=== PATIENT | male | born 1950 | race Caucasian/White ===

== ENCOUNTER 2019-02-12 07:31 | Observation (INO) ==
--- NOTE | 2019-02-12 07:47 | Emergency Department Note ---
Disposition Clinical Impression: Allergic reaction Disposition: Admitted As Inpatient Condition: Good Allergic Reaction HPI - General Chief complaint: ED Allergic Reaction Stated complaint: Allergic reation Time Seen by Provider: 02/12/19 07:35 Source: patient Mode of arrival: ambulatory Limitations: no limitations, age Nursing Notes Reviewed: Yes Vital Signs Reviewed: Yes - History of Present Illness HPI Narrative: Patient complains of an allergic reaction with feels on his arms and swelling of his lips. He started on Bactrim on Tuesday but are he had a rash on his hands. He presented to the ER on Tuesday and he continued to take the medications he was given from [facility] where he was admitted with a "blood infection". he says he feels a little short of breath if he gets around and moves otherwise he is not short of breath . He complains of generalized itching. Pt Subjective Complaint: allergic reaction, hives, facial swelling Onset (ago): week(s) (1) Exposure: unknown Symptoms: Reports: rash, itching Severity: moderate Treatment prior to arrival: none Previous Allergic Reaction History: none - Related Data Home Medications Medication Instructions Recorded Confirmed Acetaminophen [Tylenol] 650 mg PO Q6H PRN 01/04/19 02/12/19 Aspirin Enteric Coated [Aspirin EC] 325 mg PO DAILY 01/04/19 02/12/19 Atenolol [Tenormin] 25 mg PO DAILY 01/04/19 02/12/19 Atorvastatin [Lipitor] 10 mg PO DAILY 01/04/19 02/12/19 Calcium Polycarbophil [Fiber 625 mg PO DAILY PRN 01/04/19 02/12/19 Laxative] Cyanocobalamin (B-12) [Vitamin B12] 1,000 mcg PO DAILY 01/04/19 02/12/19 Cyclobenzaprine [Flexeril] 5 mg PO TID PRN 01/04/19 02/12/19 Ergocalciferol (VITAMIN D2) 50,000 unit PO QWEEK 01/04/19 02/12/19 [Vitamin D2] Metformin HCl [Fortamet] 500 mg PO DAILY 01/04/19 02/12/19 Nitroglycerin [Nitrostat] 0.4 mg SL Q5MIN PRN 01/04/19 02/12/19 Ondansetron HCl [Zofran] 4 mg PO Q6H PRN 01/04/19 02/12/19 RX: Docusate [Colace] 100 mg PO BID 01/04/19 02/12/19 RX: Folic Acid 1 mg PO DAILY 01/04/19 02/12/19 dilTIAZem HCl [Diltiazem 24Hr Cd] 120 mg PO DAILY 01/04/19 02/12/19 OxyCODONE/APAP 10/325 [Percocet 1 tab PO Q6HR PRN 01/07/19 02/12/19 10/325 MG] RX: Ketoconazole 2% CRM [Nizoral 1 appl TP DAILY 01/07/19 02/12/19 Cream] Sulfamethoxazole/Trimeth DS 1 tab PO BID 01/07/19 02/12/19 [Bactrim DS] Testosterone [Axiron] 30 mg TD DAILY 01/07/19 02/12/19 Previous Rx's Medication Instructions Recorded Apixaban [Eliquis] 5 mg PO BID #60 tablet 01/07/19 Polyethylene Glycol 3350 [MiraLAX 1 scoop PO DAILY #510 gm 02/10/19 Powder Bulk 17.9 Oz] RX: Cetirizine HCl [Zyrtec] 10 mg PO DAILY #14 capsule 02/10/19 RX: predniSONE [PredniSONE] 40 mg PO DAILY #10 tablet 02/10/19 Allergies Allergy/AdvReac Type Severity Reaction Status Date / Time divalproex sodium Allergy See Verified 01/04/19 12:09 Comments lorazepam Allergy See Verified 01/04/19 12:09 Comments All systems ED: reviewed and negative except as stated. Review of Systems: As Per HPI Constitutional: Denies: fever, chills, weakness, weight change Eyes: Denies: eye pain, eye discharge, vision change ENT ED: Denies: ear pain, throat pain, dental pain, hearing loss, epistaxis, congestion, dysphagia Cardiovascular: Denies: chest pain, palpitations, dyspnea on exertion, edema, syncope Respiratory: Reports: as per HPI Gastrointestinal: Denies: abdominal pain, nausea, vomiting, diarrhea, consti pation, hematemesis, melena, hematochezia Genitourinary: Denies: urgency, dysuria, frequency, hematuria Musculoskeletal: Denies: back pain, neck pain, arthralgia, myalgia Integumentary: Reports: as per HPI, rash Neurological: Denies: headache, weakness, numbness, paresthesias, confusion, abnormal gait, vertigo Psychiatric: Denies: anxiety, depression, suicidal thoughts, homicidal thoughts, auditory hallucinations, visual hallucinations Endocrine: Denies: fatigue Hematological/Lymphatic: Denies: easy bleeding, easy bruising Allergic/Immunologic: Denies: facial swelling, urticaria Past Medical History - Past Medical History Attestation: Yes The following information was validated with the patient. Source: patient, nursing notes reviewed Medical history: Reports: coronary artery disease, diabetes, GERD, hyperlipidemia, hypertension, kidney stones, other Surgical history: Reports: angioplasty/stent, coronary bypass (CABG), orthopedic, other (Low thoracic/lumbar decompression for spinal stenosis) Psychiatric history: Reports: no psych history - Social History Smoking Status: Former smoker Smokeless Tobacco Status: No Alcohol use: Reports: none Drug use: Reports: none Physical Exam - General Limitations: age General appearance: alert, anxious - Head Head exam: atraumatic, normocephalic, normal inspection, other (Facial edema with lymphedema) - Eye Eye exam: Present: normal appearance, PERRL, EOMI - ENT ENT exam: normal exam, normal oropharynx, mucous membranes moist - Neck Neck exam: Present: normal inspection, full ROM, trachea midline - Chest Chest inspection: Present: normal inspection, symmetric chest wall rise - Respiratory Respiratory exam: Present: normal lung sounds bilaterally - Cardiovascular Cardiovascular exam: Present: regular rate, normal rhythm, normal heart sounds - Abdominal Exam Abdominal exam: Present: soft, Non-Tender. Absent: tenderness, distention, guarding, rebound, rigidity - Extremities Exam Extremities exam: Present: normal inspection - Back Exam Back exam: Present: normal inspection, full ROM. Absent: tenderness - Neurological Exam Neurological exam: Present: alert, oriented X3 - Psychiatric Psychiatric exam: Present: normal affect, normal mood - Skin Skin exam: Present: warm, dry, intact, normal color Course Course Narrative: Patient signed out to me by off going physician, Dr. Villeda with supportive patient presented with worsening hives over the course of a week. He was given a dose of IV Decadron and IV Benadryl. On my interview and assessment patient relates that his hives first started a week ago today. He had a routine follow- up appointment at [facility] the following day regarding his prior back surgery and s ubsequent bloodstream infection. He was told that he had highs and should take oral Benadryl which he has been doing all week. He and his state his symptoms got progressively worse and so he came to this ED 2 days ago for the highs. Records show that he was given hydroxyzine and prednisone orally in the ED and prescribed 20 mg of prednisone and 10 mg of cetirizine to take at home in addition to increasing his Benadryl. He came to the ED this morning because his face and eyes were swollen this morning and he was feeling slightly short of breath. He has been on an antibiotic but the highs started before that. He denies any other new medications. He denies any known allergies other than one prior episode of hives that occurred after he drank a milkshake. He never discovered what exactly triggered the hives in the past. states that she did use a new type of laundry soap for all of his clothes and linens when he came home from the hospital and she has continued to use this new soap over the past week. He is status post a low thoracic and lumbar decompression for spinal stenosis in December with a complication of a bloodstream infection with MRSA for which he was transferred to [facility]. He has completed a 6 week course of IV antibiotics through his PICC line including vancomycin. The PICC line was removed at [facility] on Tuesday and he was started on an oral antibiotic twice a day. It appears that this was Bactrim. On my assessment patient has diffuse large raised hives over his entire body. He has some generalized swelling of the face but no swelling of the lips or tongue. He had some scattered wheezing on exam and will be given a DuoNeb along with Pepcid IV. He states he does not feel any better or has noticed any change in his hives since receiving the steroids and Benadryl today. Nursing staff tells me they feel like his hives are less red than when he arrived. He also reported a brief episode of chest pain to nursing staff. He tells me it felt like he had a "air bubble" that kelly up to his chest. This discomfort lasted for 10 minutes and has now resolved. An EKG was obtained by nursing staff immediately after this was reported which shows a normal sinus rhythm at a rate of 81. Patient does have cardiac history with a double bypass in the past 8 years ago. He also had a episode of new onset A. fib during his prior hospitalization and was started on anti-arrhythmics. He is also borderline diabetic. Will obtain chest x-ray as well as some lab work. Given the severity of patient's reaction without improvement with a single dose of IV antibiotics and anticipate likely admission for continued monitoring and steroid and antihistamine dosing. - Reevaluation(s) Reevaluation #1: Patient reports improvement in his breathing after the neb treatment. He is not currently short of breath. He still has significant itching but feels like the hives have faded somewhat. We will give hydralazine to help with the itching he sees Jeffry had a large dose of IV Benadryl. Chest x-ray and lab work are unremarkable other than a mild anemia. Discussed with patient recommendation for admission for continued monitoring and treatment he is in agreement. Spoke to hospice online activist, Dr. Saleh who has agreed to accept the patient. Time: 09:53 Vital Signs Temperature 98.2 F 02/12/19 07:33 Pulse Rate 87 02/12/19 07:33 Respiratory Rate 20 02/12/19 07:33 Blood Pressure 148/77 02/12/19 07:33 O2 Sat by Pulse Oximetry 94 02/12/19 07:33 Temperature 98.3 F 02/14/19 00:26 Pulse Rate 70 02/14/19 00:26 Respiratory Rate 17 02/14/19 00:26 Blood Pressure 112/69 02/14/19 00:26 O2 Sat by Pulse Oximetry 95 02/14/19 00:26 Oxygen Delivery Oxygen Delivery Nasal Cannula Allergic Reaction - [facility] Narrative Medical decision making narrative: I reviewed the patient's medication list - Differential Diagnosis Differential Diagnosis: Likely: allergic reaction, angioedema, urticaria - Medical Records Medical records reviewed: Yes I reviewed the patient's medical records. - Lab Data Lab results reviewed: Yes I reviewed the patient's lab results. Result diagrams: 02/14/19 04:47 02/14/19 04:47 Lab Results 02/12/19 02/12/19 Range/Units 09:04 09:04 WBC 7.4 (4.3-11.1) K/mcL RBC 4.02 L (4.19-5.50) M/mcL Hgb 10.5 L (12.9-16.9) g/dL Hct 33.5 L (37.5-50.1) % MCV 83.3 (83.0-100.0) fL MCH 26.1 L (28.0-33.3) pg MCHC 31.3 L (31.6-35.5) g/dL RDW 16.1 H (11.5-14.5) % Plt Count 349 (140-400) K/mcL MPV 10.9 (9.4-12.4) fL Immature Gran % 0.5 (0-4) % Seg Neutrophils % 66.9 % Lymphocytes % 22.7 % Monocytes % 3.2 % Eosinophils % 6.6 % Basophils % 0.1 % Neutrophils # 4.9 (1.6-8.9) K/mcL Lymphocytes # 1.7 (0.6-4.6) K/mcL Monocytes # 0.2 (0.0-1.3) K/mcL Eosinophils # 0.5 (0.0-0.6) K/mcL Basophils # 0.0 (0.0-0.2) K/mcL Nucleated RBCs/100 WBC 0.3 H (0) /100 WBC Platelet Estimate Normal (Normal) Sodium 135 L (136-145) mEq/L Potassium 4.1 (3.5-5.1) mEq/L Chloride 100 (98-107) mEq/L Carbon Dioxide 25 (23-29) mEq/L BUN 24 H (8-23) mg/dL Creatinine 1.09 (0.70-1.30) mg/dL Est GFR ( Amer) > 60 (> 60) Est GFR (Non-Af Amer) > 60 (> 60) BUN/Creatinine Ratio 22 (6-26) Glucose 122 H (70-105) mg/dL Calculated Osmolality 285 (280-300) Calcium 9.3 (8.6-10.3) mg/dL Troponin I < 0.03 (< 0.04) ng/mL - Radiology Data Radiology results reviewed: Yes I reviewed the patient's radiology results. ITS Impressions Chest X-Ray 02/12/19 08:42 IMPRESSION: No acute cardiopulmonary process radiographically. D/ / Tom Lopez MD / Tom Lopez MD Interpreting Provider: Tom Lopez MD - EKG Data EKG attestation: Yes I reviewed and interpreted this EKG. EKG shows normal: sinus rhythm Rate: normal Rhythm: NSR [place]/QRS: normal Interpretation: no acute changes, normal EKG S.B.Carmencita - Amelia Background: Presenting Complaint Assessment: Vital Signs Recommendation: Barrier(s) to disposition S.B.A.Bertha Report Given to: Dr. Danielle Cisneros Repor Time: 08:00
[2019-02-12] MEDS ORDERED: Dexamethasone 4 MG/ML VIAL IVP ONE (07:48)
[2019-02-12] MEDS ORDERED: Famotidine 20 MG/2 ML VIAL IVP ONE (08:41)
[2019-02-12] MEDS ORDERED: Ipratropium/Albuterol Neb 3 ML IH ONE (08:42)
[2019-02-12 09:21] LABS: Basophils % 0.1 %; Eosinophils # 0.5 K/mcL (0.0-0.6); Eosinophils % 6.6 %; Hematocrit 33.5 % (37.5-50.1); Hemoglobin 10.5 g/dL (12.9-16.9); Immature Granulocytes % 0.5 % (0-4); Lymphocytes # 1.7 K/mcL (0.6-4.6); Lymphocytes % 22.7 %; Mean Corpuscular HGB Conc 31.3 g/dL (31.6-35.5); Mean Corpuscular Hemoglobin 26.1 pg (28.0-33.3); Mean Corpuscular Volume 83.3 fL (83.0-100.0); Mean Platelet Volume 10.9 fL (9.4-12.4); Monocytes # 0.2 K/mcL (0.0-1.3); Monocytes % 3.2 %; Neutrophils # 4.9 K/mcL (1.6-8.9); Nucleated Red Blood Cells 0.3 /100 WBC (0); Platelet Count 349 K/mcL (140-400); Red Blood Count 4.02 M/mcL (4.19-5.50); Red Cell Distribution Width 16.1 % (11.5-14.5); Segmented Neutrophils % 66.9 %
[2019-02-12 09:31] LABS: BUN/Creatinine Ratio 22 (6-26); Blood Urea Nitrogen 24 mg/dL (8-23); Calcium 9.3 mg/dL (8.6-10.3); Carbon Dioxide 25 mEq/L (23-29); Chloride 100 mEq/L (98-107); Glucose 122 mg/dL (70-105); Osmolality,Calculated 285 (280-300); Potassium 4.1 mEq/L (3.5-5.1); Sodium 135 mEq/L (136-145); eGFR For Non-African Americans > 60 (> 60)
[2019-02-12 09:40] LABS: Troponin I < 0.03 ng/mL (< 0.04)
[2019-02-12] MEDS ORDERED: HydrOXYzine 100 MG/2 ML VIAL IM ONE (09:47)
[2019-02-12 09:50] LABS: Platelet Estimate Normal (Normal)
[2019-02-12] MEDS ORDERED: Naloxone 0.4 MG/ML INJ IVP PRN ×2 (09:54→10:25)
[2019-02-12] MEDS ORDERED: D5% in Water 1,000 ML IVC PRN ×2 (09:57→10:25)
[2019-02-12] MEDS ORDERED: *HR* Dextrose 50 % in Water (Vial) 50 ML VIAL IVP PRN (09:57)
[2019-02-12] MEDS ORDERED: Dextrose Gel 15 GM/37.5 ML TUBE PO PRN ×4 (09:57→10:25)
[2019-02-12] MEDS ORDERED: *HR* Dextrose 50 % in Water (Syg) 50 ML SYRINGE IVP PRN (10:25)
[2019-02-12] MEDS ORDERED: Ondansetron ODT 4 MG TAB.RAPDIS PO PRN (10:25)
[2019-02-12] MEDS ORDERED: Acetaminophen 325 MG TABLET PO PRN (10:25)
[2019-02-12] MEDS ORDERED: Nitroglycerin 0.4 MG TAB.SUBL SL PRN (10:25)
--- NOTE | 2019-02-12 10:48 | Electrocardiograph Report ---
[place] [id number] Test Date: 2019-02-12 Pat Name: Manuel Stewart Department: EDP-14 Room: [facility] Gender: M End Frazer: : 1950 Requested By: Maribel Ospina Order Number: [id number] Reading MD: Lawson Yuan Measurements Intervals [place] Rate: 81 P: 69 TX: 136 QRS: 68 QRSD: 98 T: -44 QT: 370 QTc: 430 Interpretive Statements Sinus rhythm Nonspecific ST-T changes Electronically Signed On 02-12-2019 10:46:38 EDT by Lawson Yuan
[2019-02-12] MEDS ORDERED: Insulin LISPRO 300 UNITS/3 ML VIAL SQ SCH ×2 (12:00→21:00)
[2019-02-12] MEDS: Insulin LISPRO 300 UNITS/3 ML VIAL SQ SCH ×3 (12:20→19:30)
[2019-02-12] MEDS: *HR* OxyCODONE/APAP 10/325 TABLET PO PRN ×2 (14:05→20:40)
[2019-02-12] MEDS: Cholecalciferol (D-3) 1,000 UNIT TABLET PO SCH (14:05)
--- NOTE | 2019-02-12 16:51 | Internal Med History&Physical ---
Date of Encounter: 02/12/19 Time of Encounter: 16:15 Assessment and Plan (1) Urticaria Current visit: No Status: Acute Suspect drug allergy. He will be given IV steroids and oral antihistamines. (2) Anemia Current visit: Yes Status: Acute Check anemia testing in a.m. Qualifiers: Anemia type: unspecified type Qualified Code(s): D64.9 - Anemia, unspecified (3) DM type 2 (diabetes mellitus, type 2) Current visit: Yes Status: Chronic He reports "borderline" DM 2 but has been prescribed metformin. Hemoglobin A1c was 6.5% on 10/13/2018. Recheck hemoglobin A1c in a.m. 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 Qualifiers: Hypertension type: essential hypertension Qualified Code(s): I10 - Essential (primary) hypertension Internal Medicine - H&P: HPI Chief complaint: Hives Admitted From: Emergency Dept Plans for Post Hospital Care: Home History of present illness: Mr. Stewart is a 68 year old male who came to emergency room the morning of admission stating treatment for hives prescribed at an ER visit February 10 had not lessened the hives. He reports he had itching on his skin the previous day but no visible hives. He was started on prednisone and Zyrtec at the 02/10/2019 ER visit without improvement. He was evaluated in emergency room today and given IV steroids and admitted to [facility] floor for ongoing care needs. He reports an L3-4 fusion procedure was done at [facility] 12/19/2018 without obvious immediate complications. (An original spine surgery had been done 2013.) Following discharge home he developed infection and was readmitted to [facility]. He was started on IV vancomycin and discharged to an LTAC for a few days prior to returning home and continuing the vancomycin course at home using a PICC line. On February 05 he noticed some pruritus of his hands without visible hives. On February 06 his infectious disease physician discontinued the IV vancomycin/PICC line and placed him on oral Septra for ongoing antibiotic therapy. He was told to take OTC Benadryl for the reported itching. He had persistent itching and developed visible hives the following day persisted so he came to emergency room February 10. He denies previous sulfa allergies. Musko skeletal history is otherwise negative for gout or other bone joint or muscle disorders. Past Med Surg Social Fam HX - Past Medical History Medical history: coronary artery disease, diabetes, GERD, hyperlipidemia, hypertension, kidney stones, other Additional medical history: low testerone Psychiatric history: no psych history - Past Surgical History Surgical History: angioplasty/stent, coronary bypass (CABG), orthopedic, other Additional surgical history: shoulder sx, back sx - Social History Smoking Status: Former smoker Smokeless Tobacco Status: No Alcohol use: none Drug use: none - Family History Father Living Status: Internal Medicine - H&P: Meds Acetaminophen [Tylenol] 650 mg PO Q6H PRN 01/04/19 [History] Aspirin Enteric Coated [Aspirin EC] 325 mg PO DAILY 01/04/19 [History] Atenolol [Tenormin] 25 mg PO DAILY 01/04/19 [History] Atorvastatin [Lipitor] 10 mg PO DAILY 01/04/19 [History] Calcium Polycarbophil [Fiber Laxative] 625 mg PO DAILY PRN 01/04/19 [History] Cyanocobalamin (B-12) [Vitamin B12] 1,000 mcg PO DAILY 01/04/19 [History] Cyclobenzaprine [Flexeril] 5 mg PO TID PRN 01/04/19 [History] Docusate [Colace] 100 mg PO BID 01/04/19 [History] Ergocalciferol (VITAMIN D2) [Vitamin D2] 50,000 unit PO QWEEK 01/04/19 [History] Folic Acid 1 mg PO DAILY 01/04/19 [History] Metformin HCl [Fortamet] 500 mg PO DAILY 01/04/19 [History] Nitroglycerin [Nitrostat] 0.4 mg SL Q5MIN PRN 01/04/19 [History] Ondansetron HCl [Zofran] 4 mg PO Q6H PRN 01/04/19 [History] dilTIAZem HCl [Diltiazem 24Hr Cd] 120 mg PO DAILY 01/04/19 [History] Apixaban [Eliquis] 5 mg PO BID #60 tablet 01/07/19 [Rx] Ketoconazole 2% CRM [Nizoral Cream] 1 appl TP DAILY 01/07/19 [History] OxyCODONE/APAP 10/325 [Percocet 10/325 MG] 1 tab PO Q6HR PRN 01/07/19 [History] Sulfamethoxazole/Trimeth DS [Bactrim DS] 1 tab PO BID 01/07/19 [History] Testosterone [Axiron] 30 mg TD DAILY 01/07/19 [History] Cetirizine HCl [Zyrtec] 10 mg PO DAILY #14 capsule 02/10/19 [Rx] Polyethylene Glycol 3350 [MiraLAX Powder Bulk 17.9 Oz] 1 scoop PO DAILY #510 gm 02/10/19 [Rx] predniSONE [PredniSONE] 40 mg PO DAILY #10 tablet 02/10/19 [Rx] Allergy/AdvReac Type Severity Reaction Status Date / Time divalproex sodium Allergy See Verified 01/04/19 12:09 Comments lorazepam Allergy See Verified 01/04/19 12:09 Comments All Systems PM: A 10-system review of systems was performed and is negative for pertinent findings except as documented above in the HPI. Review of systems: Gen.: He states his weight has decreased approximately 10 pounds during recent illness/surgery Cardiovascular: He has history of hypertension and known ASHD status post 2 vessel CABG in 2010. Reports a ARACELI was done in [place] prior to the L34 fusion. He had atrial fibrillation postoperatively but converted back to NSR. He remains on Eliquis. He denies heart failure DVT or pulmonary embolus. Respiratory: He smoked from age [age] up to 2 packs per day. He denies knowledge of COPD. He has GISELE and uses CPAP at bedtime. GI: He denies disorders of his liver gallbladder or exocrine pancreas : He has BPH symptoms. He has had kidney stones remotely. He denies other kidney or bladder disorders Neurologic: He denies large distribution strokes or seizures. Endocrine: He has hyperlipidemia and "borderline" diabetes. He denies known thyroid disease Hematology/oncology: He was unaware he had anemia on all labs since 01/03/2019. He denies internal malignancies other blood disorders Psychiatric: He denies anxiety depression or other mental health issues. Musko skeletal: As per history of present illness - Constitutional Vitals: Temp Pulse Resp BP Pulse Ox 98.1 F 81 13 122/72 93 02/12/19 14:18 02/12/19 14:18 02/12/19 14:18 02/12/19 14:18 02/12/19 14:18 Exam: Gen.: He is a well-developed well-nourished male lying comfortably in bed who appears in minimal distress at present time HEENT: He has angioedema of his upper lip. He has significant periorbital edema bilaterally. Eyes: EOMI. There is no scleral icterus. Mouth: Mucosa is moist. Neck: Supple and nontender. There is no thyromegaly or adenopathy noted. Heart: Regular without murmurs gallops or ectopics Lungs: No wheezes or crackles are heard. Abdomen: Soft and nontender. No masses or guarding are noted. Extremities: There is no cyanosis edema or clubbing noted. Dorsalis pedis and posttibial pulses are 1-2 over 2 bilaterally. Neurologic: Mental status: He is talkative and a good historian. Cranial nerves: Smile is symmetric. Forehead wrinkles bilaterally. Tongue protrudes midline. EOMI. Motor: There is no pronator drift. Cerebellar: Finger to nose is intact bilaterally. Skin: Warm and dry. He has hives on a significant portion of his torso, back, legs, and arms. Internal Med - H&P Results - Labs CBC & Chem 7: 02/12/19 09:04 02/12/19 09:04 Labs: Short CBC 02/12/19 Range/Units 09:04 WBC 7.4 (4.3-11.1) K/mcL Hgb 10.5 L (12.9-16.9) g/dL Hct 33.5 L (37.5-50.1) % Plt Count 349 (140-400) K/mcL Neutrophils # 4.9 (1.6-8.9) K/mcL BMP 02/12/19 09:04 Sodium 135 L Potassium 4.1 Chloride 100 Carbon Dioxide 25 BUN 24 H Creatinine 1.09 Glucose 122 H Calcium 9.3 Cardiac Enzymes 02/12/19 02/12/19 Range/Units 09:04 11:23 Troponin I < 0.03 < 0.03 (< 0.04) ng/mL - Impressions ITS Impressions Chest X-Ray 02/12/19 08:42 IMPRESSION: No acute cardiopulmonary process radiographically. D/ / Tom Lopez MD / Tom Lopez MD Interpreting Provider: Tom Lopez MD - VTE Reasons for not Prescribing Prophylaxis: Treatment not Indicated - Low risk for VTE
[2019-02-12] MEDS ORDERED: Famotidine 20 MG TABLET PO SCH (16:57)
[2019-02-12] MEDS: Dexamethasone 4 MG/ML VIAL IVP SCH (17:51)
[2019-02-12] MEDS: Apixaban 5 MG TABLET PO SCH (19:39)
[2019-02-12] MEDS ORDERED: Sulfamethoxazole/Trimeth DS 1 EACH TABLET PO SCH (21:00)
[2019-02-13] MEDS: Dexamethasone 4 MG/ML VIAL IVP SCH ×3 (00:59→16:43)
[2019-02-13] MEDS: Insulin LISPRO 300 UNITS/3 ML VIAL SQ SCH ×6 (01:00→20:27)
[2019-02-13] MEDS: *HR* OxyCODONE/APAP 10/325 TABLET PO PRN ×3 (03:44→15:37)
[2019-02-13] MEDS: Cholecalciferol (D-3) 1,000 UNIT TABLET PO SCH (08:21)
[2019-02-13] MEDS: Famotidine 20 MG TABLET PO SCH ×2 (08:21→20:27)
[2019-02-13] MEDS: Cyanocobalamin (B-12) 1,000 MCG TABLET PO SCH (08:21)
[2019-02-13] MEDS: Diltiazem CD (24hr) 120 MG CAPSULE PO SCH (08:21)
[2019-02-13] MEDS: Apixaban 5 MG TABLET PO SCH ×2 (08:21→20:27)
[2019-02-13] MEDS: Folic Acid 1 MG TABLET PO SCH (08:21)
[2019-02-13] MEDS: Loratadine 10 MG TABLET PO SCH (08:21)
[2019-02-13] MEDS: *HR* Metformin 500 MG TABLET PO SCH (08:22)
[2019-02-13] MEDS ORDERED: Aspirin Enteric Coated 325 MG Tablet PO SCH (09:00)
[2019-02-13 09:08] LABS: % Iron Saturation 15 % (20-55); Iron 42 mcg/dL (65-175); Transferrin 204 mg/dL (203-362)
[2019-02-13 09:16] LABS: Ferritin 223 ng/mL (20-250)
[2019-02-13 09:21] LABS: Folate 8.6 ng/mL (3.0-16.0)
[2019-02-13 09:24] LABS: Estimated Average Glucose 123 mg/dl; Hemoglobin A1C 5.9 %
--- NOTE | 2019-02-13 09:46 | Internal Med Progress Note ---
Date of Encounter: 02/13/19 Time of Encounter: 09:38 - Assessment and plan (1) Urticaria Current Visit: No Status: Acute Assessment and plan: February 13. Continue IV steroids and oral antihistamines. (2) Anemia Current Visit: Yes Status: Acute Assessment and plan: February 13. Anemia testing showed iron 42, transferrin saturation 15%, transferrin 204, ferritin 223, B12 559, and folate 8.6. Start ferrous sulfate with ascorbic acid trial in a.m. Qualifiers: Anemia type: unspecified type Qualified Code(s): D64.9 - Anemia, unspecified (3) DM type 2 (diabetes mellitus, type 2) Current Visit: Yes Status: Chronic Assessment and plan: February 13. Hemoglobin A1c acceptable at 5.9%. Qualifiers: Diabetes mellitus fci insulin use: without fci use Diabetes mellitus complication status: without complication Qualified Code(s): E11.9 - Type 2 diabetes mellitus without complications (4) HTN (hypertension) Current Visit: No Status: Chronic Assessment and plan: February 13. Continue Tenormin. Qualifiers: Hypertension type: essential hypertension Qualified Code(s): I10 - Essential (primary) hypertension - Subjective Interval history: February 13. He has no new complaints. He has slight pruritus. - Constitutional Vitals: Temp Pulse Resp BP Pulse Ox 98.3 F 73 13 129/72 95 02/13/19 07:08 02/13/19 07:08 02/13/19 07:08 02/13/19 07:08 02/13/19 07:08 Exam: He is resting comfortably in bed and appears in no acute distress. He has slight decrease in amount of hives, lip angioedema, and periorbital edema. I reviewed his medications and lab results. Internal Medicine: Result - Labs CBC & Chem 7: 02/12/19 09:04 02/12/19 09:04 Labs: Short CBC 02/12/19 Range/Units 09:04 Neutrophils # 4.9 (1.6-8.9) K/mcL Cardiac Enzymes 02/12/19 02/12/19 02/12/19 Range/Units 11:23 17:05 23:02 Troponin I < 0.03 < 0.03 < 0.03 (< 0.04) ng/mL - VTE Reasons for not Prescribing Prophylaxis: Treatment not Indicated - Low risk for VTE Consult Discharge Plan - Plan Referrals: NONE,PCP [Primary Care Provider] - 1 week
[2019-02-13] MEDS: Ketoconazole 2% CRM 15 GM TUBE TP SCH (09:52)
[2019-02-14] MEDS: Dexamethasone 4 MG/ML VIAL IVP SCH ×2 (00:43→07:42)
[2019-02-14] MEDS: *HR* OxyCODONE/APAP 10/325 TABLET PO PRN ×2 (00:43→07:03)
[2019-02-14 06:08] LABS: Basophils % 0.2 %; Eosinophils % 0.4 %; Hematocrit 35.1 % (37.5-50.1); Hemoglobin 10.6 g/dL (12.9-16.9); Immature Granulocytes % 1.2 % (0-4); Lymphocytes # 2.1 K/mcL (0.6-4.6); Lymphocytes % 22.1 %; Mean Corpuscular HGB Conc 30.2 g/dL (31.6-35.5); Mean Corpuscular Hemoglobin 25.8 pg (28.0-33.3); Mean Corpuscular Volume 85.4 fL (83.0-100.0); Mean Platelet Volume 11.3 fL (9.4-12.4); Monocytes # 0.4 K/mcL (0.0-1.3); Neutrophils # 6.9 K/mcL (1.6-8.9); Nucleated Red Blood Cells 0.5 /100 WBC (0); Platelet Count 397 K/mcL (140-400); Red Blood Count 4.11 M/mcL (4.19-5.50); Red Cell Distribution Width 16.5 % (11.5-14.5); Segmented Neutrophils % 72.1 %
[2019-02-14] MEDS ORDERED: Ascorbic Acid 500 MG TABLET PO SCH (06:30)
[2019-02-14 06:35] LABS: Alanine Aminotransferase 16 Units/L (7-52); Albumin 3.3 g/dL (3.5-5.7); Albumin/Globulin Ratio 0.7 (1.1-2.2); Alkaline Phosphatase 82 Units/L (34-104); Aspartate Amino Transferase 11 Units/L (13-39); BUN/Creatinine Ratio 42 (6-26); Bilirubin,Total 0.3 mg/dL (0.3-1.0); Blood Urea Nitrogen 37 mg/dL (8-23); Calcium 9.5 mg/dL (8.6-10.3); Carbon Dioxide 27 mEq/L (23-29); Chloride 105 mEq/L (98-107); Globulin 4.8 g/dL (2.4-3.5); Glucose 170 mg/dL (70-105); Osmolality,Calculated 301 (280-300); Potassium 4.4 mEq/L (3.5-5.1); Sodium 139 mEq/L (136-145); Total Protein 8.1 g/dL (6.4-8.9); eGFR For Non-African Americans > 60 (> 60)
[2019-02-14 06:47] LABS: Platelet Estimate Normal (Normal); Reactive Lymphocytes Present (Not Present)
[2019-02-14] MEDS: Insulin LISPRO 300 UNITS/3 ML VIAL SQ SCH (07:42)
[2019-02-14] MEDS: *HR* Metformin 500 MG TABLET PO SCH (07:43)
[2019-02-14] MEDS: Cyanocobalamin (B-12) 1,000 MCG TABLET PO SCH (07:43)
[2019-02-14] MEDS: Famotidine 20 MG TABLET PO SCH (07:43)
[2019-02-14] MEDS: Apixaban 5 MG TABLET PO SCH (07:43)
[2019-02-14] MEDS: Folic Acid 1 MG TABLET PO SCH (07:43)
[2019-02-14] MEDS: Diltiazem CD (24hr) 120 MG CAPSULE PO SCH (07:43)
[2019-02-14] MEDS: Loratadine 10 MG TABLET PO SCH (07:43)
[2019-02-14] MEDS: Cholecalciferol (D-3) 1,000 UNIT TABLET PO SCH (07:43)
[2019-02-14] MEDS: Ketoconazole 2% CRM 15 GM TUBE TP SCH (07:53)
[2019-02-14 07:56] VITALS: BP 137/78
--- NOTE | 2019-02-14 10:07 | Discharge Summary ---
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 Stewart is a 68 year old male who came to emergency room the morning of admission stating treatment for hives prescribed at an ER visit February 10 had not lessened the hives. He reports he had itching on his skin the previous day but no visible hives. He was started on prednisone and Zyrtec at the 02/10/2019 ER visit without improvement. He was evaluated in emergency room today and given IV steroids and admitted to [facility] floor for ongoing care needs. Initial orders were written by the emergency room physician. I saw him on February 12 and performed a history and physical. He was started on IV steroids and oral H1 and H2 antihistamines. He had significant improvement in the angioedema, periorbital edema, and hives by day of discharge. On February 14 he stated he felt significant improvement and wished to be discharged home. He will be given a Medrol Dosepak prescription and will continue antihistamines for 5 days. He will follow with his PCP within 1 week. He will remain off Septra until hives have completely resolved and then restart and observe closely to see if there is recurrence of hives. He will follow-up with his PCP within 1 week and infectious disease specialist as directed. - Time Spent with Patient Total time spent providing and/or coordinating discharge services: - Discharge Medications Prescriptions: New Ascorbic Acid [Vitamin C] 500 mg PO 0630 #30 tablet DiphenhydraMINE [Benadryl] 25 mg PO Q6H #20 capsule Famotidine [Pepcid] 20 mg PO BID #10 tablet Ferrous Sulfate 325 mg PO 0630 #30 tablet Continue Ondansetron HCl [Zofran] 4 mg PO Q6H PRN PRN Reason: Nausea Nitroglycerin [Nitrostat] 0.4 mg SL Q5MIN PRN PRN Reason: Chest Pain Metformin HCl [Fortamet] 500 mg PO DAILY Folic Acid 1 mg PO DAILY Ergocalciferol (VITAMIN D2) [Vitamin D2] 50,000 unit PO QWEEK Calcium Polycarbophil [Fiber Laxative] 625 mg PO DAILY PRN PRN Reason: Constipation Docusate [Colace] 100 mg PO BID dilTIAZem HCl [Diltiazem 24Hr Cd] 120 mg PO DAILY Cyclobenzaprine [Flexeril] 5 mg PO TID PRN PRN Reason: muscle spasms Cyanocobalamin (B-12) [Vitamin B12] 1,000 mcg PO DAILY Atorvastatin [Lipitor] 10 mg PO DAILY Atenolol [Tenormin] 25 mg PO DAILY Aspirin Enteric Coated [Aspirin EC] 325 mg PO DAILY Acetaminophen [Tylenol] 650 mg PO Q6H PRN PRN Reason: Pain Apixaban [Eliquis] 5 mg PO BID #60 tablet Ketoconazole 2% CRM [Nizoral Cream] 1 appl TP DAILY Sulfamethoxazole/Trimeth DS [Bactrim Ds] 1 tab PO BID Testosterone [Axiron] 30 mg TD DAILY OxyCODONE/APAP 10/325 [Percocet 10/325 MG] 1 tab PO Q6HR PRN PRN Reason: Pain Cetirizine HCl [Zyrtec] 10 mg PO DAILY #14 capsule Polyethylene Glycol 3350 [MiraLAX Powder Bulk 17.9 Oz] 1 scoop PO DAILY #510 gm Discontinued predniSONE [PredniSONE] 40 mg PO DAILY #10 tablet Home Medications: Acetaminophen [Tylenol] 650 mg PO Q6H PRN 01/04/19 [History] Aspirin Enteric Coated [Aspirin EC] 325 mg PO DAILY 01/04/19 [History] Atenolol [Tenormin] 25 mg PO DAILY 01/04/19 [History] Atorvastatin [Lipitor] 10 mg PO DAILY 01/04/19 [History] Calcium Polycarbophil [Fiber Laxative] 625 mg PO DAILY PRN 01/04/19 [History] Cyanocobalamin (B-12) [Vitamin B12] 1,000 mcg PO DAILY 01/04/19 [History] Cyclobenzaprine [Flexeril] 5 mg PO TID PRN 01/04/19 [History] Docusate [Colace] 100 mg PO BID 01/04/19 [History] Ergocalciferol (VITAMIN D2) [Vitamin D2] 50,000 unit PO QWEEK 01/04/19 [History] Folic Acid 1 mg PO DAILY 01/04/19 [History] Metformin HCl [Fortamet] 500 mg PO DAILY 01/04/19 [History] Nitroglycerin [Nitrostat] 0.4 mg SL Q5MIN PRN 01/04/19 [History] Ondansetron HCl [Zofran] 4 mg PO Q6H PRN 01/04/19 [History] dilTIAZem HCl [Diltiazem 24Hr Cd] 120 mg PO DAILY 01/04/19 [History] Apixaban [Eliquis] 5 mg PO BID #60 tablet 01/07/19 [Rx] Ketoconazole 2% CRM [Nizoral Cream] 1 appl TP DAILY 01/07/19 [History] OxyCODONE/APAP 10/325 [Percocet 10/325 MG] 1 tab PO Q6HR PRN 01/07/19 [History] Sulfamethoxazole/Trimeth DS [Bactrim Ds] 1 tab PO BID 01/07/19 [History] Testosterone [Axiron] 30 mg TD DAILY 01/07/19 [History] Cetirizine HCl [Zyrtec] 10 mg PO DAILY #14 capsule 02/10/19 [Rx] Polyethylene Glycol 3350 [MiraLAX Powder Bulk 17.9 Oz] 1 scoop PO DAILY #510 gm 02/10/19 [Rx] Ascorbic Acid [Vitamin C] 500 mg PO 0630 #30 tablet 02/14/19 [Rx] DiphenhydraMINE [Benadryl] 25 mg PO Q6H #20 capsule 02/14/19 [Rx] Famotidine [Pepcid] 20 mg PO BID #10 tablet 02/14/19 [Rx] Ferrous Sulfate 325 mg PO 0630 #30 tablet 02/14/19 [Rx] Allergies/Adverse Reactions: Allergy/AdvReac Type Severity Reaction Status Date / Time divalproex sodium Allergy See Verified 01/04/19 12:09 Comments lorazepam Allergy See Verified 01/04/19 12:09 Comments Date of admission: 02/12/19 10:09 Primary care physician: PCP NONE - Constitutional Vitals: Temp Pulse Resp BP Pulse Ox 99.1 F 89 17 137/78 96 02/14/19 07:55 02/14/19 07:55 02/14/19 00:26 02/14/19 07:55 02/14/19 07:55 - Patient Status Disposition: Home, Self-Care Condition: Good - Discharge Instructions Follow Up With: NONE,PCP [Primary Care Provider] - 1 week - Diet and Activity Activity: resume usual activities as tolerated Diet: advance to your usual diet - VTE Reasons for not Prescribing Prophylaxis: Treatment not Indicated - Low risk for VTE
== END 2019-02-14 10:30 | disposition home or self-care (01) ==
LOC: INPPIK 07:31 → EMEROOPIK 07:31 → INPPIK 11:15
PROVIDERS: ADMIT Internal Medicine; ATTEND Internal Medicine